=== PATIENT | female | born 1995 | race Caucasian/White ===

== ENCOUNTER 2018-02-28 18:23 | Emergency (ER) | payer SELFPAY ==
[2018-02-28] MEDS ORDERED: Bicillin LA 1.2 MILLION UNITS/2 ML SYRINGE ONE (18:47)
[2018-02-28] MEDS ORDERED: Acetaminophen 500 MG TAB ONE (19:14)
[2018-02-28] MEDS ORDERED: Dexamethasone 4 mg/ml Vial ONE (19:14)
[2018-02-28] MEDS ORDERED: Dexamethasone 10 MG/ML VIAL ONE (19:16)
== END 2018-02-28 19:24 | disposition home or self-care (01) ==
LOC: ERS 18:23
DX: J02.0 Streptococcal pharyngitis (principal); F41.9 Anxiety disorder, unspecified; F32.9 Major depressive disorder, single episode, unspecified
CPT/HCPCS: 96372; J0561; J1100